=== PATIENT | male | born 1945 | race Caucasian/White ===

== ENCOUNTER 2018-01-23 14:45 | Outpatient (CLI) | payer MEDICARE, BC ==
--- NOTE | 2018-01-23 16:20 | RAD ---
CHEST TWO VIEWS: History: Rales. Phlegm. Comparison: None. FINDINGS: Normal cardiac silhouette. The pulmonary vessels and hilum are normal. Costophrenic angles are clear. No masses or consolidations. No pneumothorac or osseous abnormality. IMPRESSION: No acute cardiopulmonary process. POS: JEFFERY
== END 2018-01-23 14:46 | disposition home or self-care (01) ==
LOC: BICRAD 14:45
PROVIDERS: ATTEND Physician Assistant
DX: R09.89 Other specified symptoms and signs involving the circulatory and respiratory systems (principal)
CPT/HCPCS: 71046

== ENCOUNTER 2019-04-10 05:43 | Outpatient (CLI) | payer MEDICARE, BC ==
[2019-04-10 11:16] LABS: Hemoglobin 13.7 g/dL (14.0-18.0); Mean Corpuscular HGB CONC 33.5 g/dL (32.0-36.0); Mean Corpuscular Hemoglobin 30.4 pg (27.0-31.0); Mean Corpuscular Volume 90.7 fL (78.0-98.0); Mean Platelet Volume 7.4 fL (7.4-10.4); Platelet Count 183 thou/uL (130-400); Red Blood Cell (RBC) Count 4.52 mill/uL (4.70-6.10)
[2019-04-10 11:17] LABS: Bacteria/HPF None Seen HPF (None Seen); Bilirubin Negative (Negative); Blood, Urine Negative (Negative); Clarity Clear (Clear); Glucose, Urine (Dipstick) Normal (Negative); Leukocyte Negative Leu/uL (Negative); Nitrite Negative (Negative); Protein, Urine (Dipstick) 70 mg/dL (Neg-Trace); Squamous Epithelial None Seen HPF (0-3); Urobilinogen Normal mg/dL (Less than 2); WBC/HPF 0-3 HPF (0-3)
[2019-04-10 11:22] LABS: INR-International Normal Ratio 1.1; PTT 30.5 SEC (22.9-36.1); Prothrombin Time 13.9 SEC (12.0-14.7)
[2019-04-10 11:31] LABS: Anion Gap 11 mmol/L (10-20); BUN (Urea Nitrogen) 21 mg/dL (8.4-25.7); Calc. Creatinine Clearance 0 mL/min (70-130); Carbon Dioxide 29 mmol/L (23-31); Chloride 100 mmol/L (98-107); Estimated GFR-MDRD Greater than 90; Glucose 89 mg/dL (83-110); Potassium 4.2 mmol/L (3.5-5.1); Sodium 136 mmol/L (136-145)
== END 2019-04-10 05:44 | disposition home or self-care (01) ==
LOC: LABBT 05:43
PROVIDERS: ATTEND Urology
DX: Z01.818 Encounter for other preprocedural examination (principal); N40.1 Benign prostatic hyperplasia with lower urinary tract symptoms; N52.9 Male erectile dysfunction, unspecified
CPT/HCPCS: 80048; 81001; 85027; 85610; 85730; 87086; 93005; 93010

== ENCOUNTER 2019-04-20 05:45 | Day surgery (SDC) | payer MEDICARE, BC ==
[2019-04-10 09:23] VITALS: BMI 30.5
[2019-04-20] MEDS ORDERED: Levofloxacin 500 mg/D5W 100 ml Premix Bag ONE (06:57)
[2019-04-20] MEDS ORDERED: Fentanyl 100 MCG/2 ML VIAL ONE (07:45)
[2019-04-20] MEDS ORDERED: Phenazopyridine HCl 97.5 MG TABLET ONE (08:46)
[2019-04-20] MEDS ORDERED: Lidocaine 1% PF 5 ML VIAL ONE (10:44)
[2019-04-20] MEDS ORDERED: Ondansetron PF 4 MG/2 ML Vial ONE (10:44)
[2019-04-20] MEDS ORDERED: EPHEDRINE 25 MG/5 ML SYRINGE ONE (10:44)
[2019-04-20] MEDS ORDERED: PROPOFOL 200 MG/20 ML VIAL ONE (10:44)
[2019-04-20] MEDS ORDERED: PHENYLEPHRINE-NS 100 MCG/ML 10 ML SYRINGE ONE (10:44)
--- NOTE | 2019-04-20 13:42 | OP ---
DATE OF PROCEDURE: 04/20/2019 SERVICE: Urology. PREOPERATIVE DIAGNOSIS: Benign prostatic hypertrophy with urinary symptoms. POSTOPERATIVE DIAGNOSIS: Benign prostatic hypertrophy with urinary symptoms. PROCEDURE PERFORMED: UroLift x7 implants. INDICATIONS FOR PROCEDURE: Mr. Macias is a 74-year-old white male who initially presented to me with BPH. He has been on tamsulosin and is not satisfied with his current urinary symptoms. He elected to get off the medication in an attempt to urinate better. We discussed the UroLift risks and benefits and he has agreed to proceed forward. DESCRIPTION OF PROCEDURE: After identification of armband and verification of consent, the patient was brought back to the operating room, where he underwent general anesthesia with an LMA. He was placed in dorsal lithotomy position and prepped and draped in usual sterile fashion. After appropriate time-out, a lubricated 22-Malawian rigid cystoscope was introduced per urethra into the bladder. The prostate appeared obstructive as previously been described on outpatient cystoscopy. The visual obturator was switched out for the UroLift device and the first implant was placed at the proximal prostate on the patient's left side. Initially, the prostate was lifted up and then the UroLift device brought back until it was at least about 1.5 cm proximal to the bladder neck. Compression was done laterally by angling the scope about 20 degrees laterally and somewhat downward. Once adequate compression was achieved and we were far away from the bladder neck, the safety was released. The Nitinol tab was deployed by firing the blue trigger. The tension was set using the amin trigger, deploying the capsular tab. The UroLift was advanced forward until the white line was visualized in the keyhole and then the steel urethral end-piece deployed using the back release trigger. This resulted in nice compression of the proximal left prostate. This was then repeated on the proximal right prostate and 2 more implants then achieved in the same fashion at the apex of the prostate on the left and right side, this resulted in nice lateral compression, but there was significant cat-eye effect and still obstruction at the bladder neck. Therefore, anterior elevation implants were placed at approximately 10 in 2 on both sides of the prostate, resulting in nice elevation of the bladder neck and a much more open prostatic channel. However, there was still some lumpy tissue at the bladder neck and we elected to place one final implant by sweeping the bulky tissue on the median ridge laterally from the patient's left to right and one final piece deployed there. This resulted in nice overall compression of the median ridge and a wide-open prostatic channel. Satisfied, the UroLift device was removed and an 18-Malawian Salgado catheter was placed with ease in the patient's bladder with 10 mL of sterile water in the balloon. This was hooked up to gravity drainage. The patient was taken out of positioning, awakened, taken to PACU for recovery in stable condition. COMPLICATIONS: None. ESTIMATED BLOOD LOSS: Minimal. RETAINED TUBES AND DRAINS: 18-Malawian Salgado catheter. SPECIMENS: None. IMPLANTS USED: Seven. DISPOSITION: The patient will undergo a void trial in Day Stay. He will be discharged afterwards with followup on an outpatient basis. Job ID: [id number]
== END 2019-04-20 12:30 | disposition home or self-care (01) ==
LOC: SDC 05:45
PROVIDERS: ATTEND Urology
PROC: 0T7D8DZ Dilation of Urethra with Intraluminal Device, Via Natural or Artificial Opening Endoscopic (ICD-10-PCS; principal; 2019-04-20)
DX: N40.1 Benign prostatic hyperplasia with lower urinary tract symptoms (principal); I10 Essential (primary) hypertension; G47.33 Obstructive sleep apnea (adult) (pediatric); E78.5 Hyperlipidemia, unspecified; Z79.899 Other long term (current) drug therapy; Z88.5 Allergy status to narcotic agent
CPT/HCPCS: C1889; C9740; J1956; J2001; J2405; J2704; J3010